=== PATIENT | female | born 1960 | race Hispanic/Latino ===

== ENCOUNTER → 2023-10-19 07:39 | Outpatient (REF) | payer OTHER, SELFPAY ==
[2023-10-19 09:45] LABS: Free T4 1.29 ng/dl (0.78-2.19)
[2023-10-19 09:58] LABS: TSH 8.04 uIU/ml (0.47-4.68)
[2023-10-19 10:09] LABS: Glycohemoglobin (HgbA1c) 6.5 % (4.0-5.6)
== END ==
LOC: CLINIC 07:39
PROVIDERS: ATTENDING PHYSICIAN Nurse Practitioner Adult Health
DX: R73.03 Prediabetes (principal); E06.9 Thyroiditis, unspecified
CPT/HCPCS: 36415; 82306; 83036; 84439; 84443

== ENCOUNTER 2023-10-19 09:44 | Emergency (ER) | payer SELFPAY ==
[2023-10-19 09:56] VITALS: BP 150/88
--- NOTE | 2023-10-19 11:45 | ED.GENMED ---
History of Present Illness
General
Chief Complaint: Fall
Source: patient
Exam Limitations: none
Time Seen by Provider: 10/19/23 11:07
Nursing documentation reviewed up to this point in time: agreed with
Travel History
Have you had any contact with someone who has COVID-19?: No
Do you have any symptoms of coronavirus? Fever > 100 degrees, chills, cough, shortness of breath, sore throat, loss of taste or smell, muscle aches, or headache?: No
History of Present Illness
History of Present Illness:
63-year-old female presenting to the emergency department after a fall on outstretched hand prior to arrival injuring her right elbow. She claims that she may have gently hit her head but denies any major impact no loss of consciousness no numbness
weakness nausea vomiting or additional concerns only right elbow pain at this time. No neck pain.
Review of Systems
Review of Systems
Allergies reviewed?: Yes
All Other Systems: ROS reviewed and negative except as documented in HPI and ROS
Phy Exam
Physical Exam
Physical Exam:
GENERAL: Alert , in no apparent distress
EYE: pupils equal and reactive
NECK: Supple, no significant adenopathy.
ENT: o/p clr, mmm.
CARDIAC: Regular rate and rhythm .
LUNGS: Clear breath sounds bilaterally, no acute respiratory distress, no wheezes/rales/rhonchi
ABDOMEN: Soft, without focal tenderness, no r/g, no cvat
NEUROLOGICAL: Alert and oriented, no focal neuro deficits
SKIN: Warm and dry, skin intact.
MUSCULOSKELETAL: Swelling and tenderness palpation to the right elbow mainly to the area lateral to the elbow itself and the proximal ulna. No discomfort to the wrist or hand no tenderness to the proximal shoulder no visible trauma to the head or
face ma, well perfused.
PSYCH: Normal and appropriate interaction.
Course
Orders/Labs/Results
Orders:
Orders
05/21/24 09:58
CR Elbow - Right Min 2 View Urgent
Reason For Exam: pain, swelling
Vital Signs
Initial and Last Documented VS:
Initial Vital Signs
Temp Pulse Resp BP Pulse Ox
98.1 F 63 18 150/88 98
10/19/23 09:56 10/19/23 09:56 10/19/23 09:56 10/19/23 09:56 10/19/23 09:56
Last Documented Vital Signs
Temp Pulse Resp BP Pulse Ox
98.1 F 63 18 150/88 98
10/19/23 09:56 10/19/23 09:56 10/19/23 09:56 10/19/23 09:56 10/19/23 09:56
Procedures
Splinting/Sling Placement
Right Elbow:
Procedure completed by: Myself
Pre-splint extermity exam: neurovascular intact
Type of splint: posterior long arm
Splint material: fiberglass
Splint checked by provider?: Yes
Type of sling: sling fitted
Normal distal neurovascular exam?: Yes
MDM/Problems Addressed
MDM/Problems Addressed:
63-year-old female presenting to the emergency department with injury to the right elbow after fall on outstretched hand prior to arrival. May have gently hit her head denies any major head impact did not lose consciousness no neck pain. Patient
not on blood thinners. Low risk for significant head injury. X-ray performed of the right elbow that showed a proximal ulnar fracture patient was placed in a splint and sling. Orthopedics was contacted and patient will follow close with
orthopedics as an outpatient. Return precautions given.
*Critical Care Note
Total Time (30-74mins, 75-104mins- exclusive of procedures): Not Applicable
ED Attending Note
-
Portions of this chart may have been created with voice recognition software.� Occasional wrong word or��sound alike� substitutions may have occurred due to the inherent limitations of voice recognition software.
Discharge Plan
Departure
Patient Disposition: Home (Routine Discharge)
Date of Disposition: 10/19/23
Time of Disposition: 12:08
Patient with high blood pressure during this ER visit?: No
Condition: Good
Covid-19: Not Applicable
Discharge Problem:
Elbow fracture, right
Instructions: Elbow Fracture, Adult ED
Prescriptions:
No Action
levothyroxine [Synthroid] 50 mcg Tablet
50 mcg PO MOWEFRSA@0800
levothyroxine [Synthroid] 50 mcg Tablet
75 mcg PO SUTUTH@0800
cholecalciferol (vitamin D3) [Vitamin D3] 25 mcg (1,000 unit) Tablet
25 mcg PO DAILY
Referrals:
Matthias Wilson MD [Active] - Follow up in 5-7 days
UNKNOWN - PT DOES,NOT KNOW [Family Provider] -
Activity Restrictions/Additional Instructions:
You came to the emergency department today with concerns of elbow discomfort you are found to have an elbow fracture. Please leave the splint and sling in place until follow-up with orthopedics within 1 week. Return to the emergency department any
worsening, new or concerning symptoms.
Interventions
Interventions:
*Risk Screen - Suicide Last Done: 10/19/23 11:46
*General Assessment Last Done: 10/19/23 11:46
*Neglect/Abuse Screening Last Done: 10/19/23 11:46
ED- Fall Risk Assessment Last Done: 10/19/23 11:46
*ED COVID-19 Vaccine History Last Done: 10/19/23 09:56
ED-Musculoskeletal Assessment Last Done: 10/19/23 11:46
ED- Neurological Assessment Last Done: 10/19/23 11:46
ED-Skin Assessment Last Done: 10/19/23 11:46
Discharge Date and Time
Print Language: PALAUAN
[2023-10-19 11:46] VITALS: BMI 28.3
== END 2023-10-19 12:24 | disposition home or self-care (01) ==
LOC: EMR 09:44
PROVIDERS: EMERGENCY PHYSICIAN Emergency Medicine
DX: S52.041A Displaced fracture of coronoid process of right ulna, initial encounter for closed fracture (principal); W19.XXXA Unspecified fall, initial encounter
CPT/HCPCS: 99283; 29105; 73070

== ENCOUNTER → 2024-01-07 08:10 | Outpatient (REF) | payer OTHER, SELFPAY ==
[2024-01-07 12:32] LABS: ALT (SGPT) 29 U/L (0-35); AST (SGOT) 30 U/L (14-36); Albumin 4.6 g/dl (3.5-5.0); Alkaline Phosphatase 99 U/L (38-126); Blood Urea Nitrogen 23 mg/dl (7-17); Calcium 9.6 mg/dl (8.4-10.2); Carbon Dioxide 23 mmol/L (22-30); Chloride 105 mmol/L (98-107); Glucose 106 mg/dl (70-99); Potassium 4.2 mmol/L (3.5-5.1); Sodium 135 mmol/L (135-145); Total Bilirubin 0.8 mg/dl (0.2-1.3); Total Protein 7.7 g/dl (6.3-8.2); eGFR > 60.00
[2024-01-07 12:45] LABS: Vitamin D, 25-OH*** 39.7 ng/mL (30-80)
[2024-01-07 12:58] LABS: TSH 4.24 uIU/ml (0.47-4.68)
== END ==
LOC: HWLAB 08:10
PROVIDERS: ATTENDING PHYSICIAN Nurse Practitioner Adult Health
DX: R73.03 Prediabetes (principal); E03.9 Hypothyroidism, unspecified; E55.9 Vitamin D deficiency, unspecified
CPT/HCPCS: 36415; 80053; 82306; 83036; 84439; 84443

== ENCOUNTER → 2024-04-11 09:07 | Outpatient (REF) | payer OTHER, SELFPAY ==
[2024-04-11 12:46] LABS: Free T4 1.41 ng/dl (0.78-2.19)
[2024-04-11 12:54] LABS: Calcium 9.3 mg/dl (8.4-10.2); Glucose 106 mg/dl (70-99); Potassium 4.4 mmol/L (3.5-5.1); Sodium 142 mmol/L (135-145)
[2024-04-11 13:01] LABS: TSH 1.15 uIU/ml (0.47-4.68)
[2024-04-11 13:05] LABS: Blood Urea Nitrogen 13 mg/dl (7-17); Carbon Dioxide 24 mmol/L (22-30); Chloride 105 mmol/L (98-107); eGFR > 60.00
== END ==
LOC: CLINIC 09:07
PROVIDERS: ATTENDING PHYSICIAN Nurse Practitioner Adult Health
DX: R73.03 Prediabetes (principal); E03.9 Hypothyroidism, unspecified
CPT/HCPCS: 36415; 80048; 83036; 84439; 84443

== ENCOUNTER → 2024-09-25 06:05 | Outpatient (REF) | payer OTHER, SELFPAY ==
[2024-09-25 09:22] LABS: Hematocrit 37.4 % (37.0-47.0); Hemoglobin 11.9 g/dL (12.0-16.0); Mean Corp Hgb Conc. 31.8 g/dL (33.0-37.0); Mean Corpuscular Hgb 29.5 pg (27.0-31.0); Mean Corpuscular Volume 92.6 fL (81.0-99.0); Platelet Count 246 10^3/uL (130-400); Red Blood Cell Count 4.04 10^6/uL (4.20-5.40); Red Cell Dist. Width 13.2 % (11.5-14.5); White Blood Cell Count 6.1 10^3/uL (4.8-10.8)
[2024-09-25 09:49] LABS: ALT (SGPT) 21 U/L (0-35); AST (SGOT) 23 U/L (14-36); Albumin 4.5 g/dl (3.5-5.0); Alkaline Phosphatase 99 U/L (38-126); Blood Urea Nitrogen 20 mg/dl (7-17); Calcium 9.1 mg/dl (8.4-10.2); Carbon Dioxide 24 mmol/L (22-30); Chloride 107 mmol/L (98-107); Glucose 114 mg/dl (70-99); HDL Cholesterol 49 mg/dl; LDL Cholesterol, Calculated 122 mg/dl; Potassium 4.6 mmol/L (3.5-5.1); Sodium 142 mmol/L (135-145); Total Bilirubin 0.8 mg/dl (0.2-1.3); Total Cholesterol 209 mg/dl (50-199); Total Protein 7.3 g/dl (6.3-8.2); Triglyceride 194 mg/dl (10-149); Very Low Density Lipoprotein 38 mg/dl (0-30); eGFR > 60.00
[2024-09-25 09:57] LABS: Vitamin D, 25-OH*** 46.7 ng/mL (30-80)
[2024-09-25 12:18] LABS: Glycohemoglobin (HgbA1c) 6.4 % (4.0-5.6)
== END ==
LOC: HWLAB 06:05
PROVIDERS: ATTENDING PHYSICIAN Nurse Practitioner Adult Health
DX: R73.03 Prediabetes (principal); E55.9 Vitamin D deficiency, unspecified
CPT/HCPCS: 36415; 80053; 80061; 82306; 83036; 85027

== ENCOUNTER → 2024-10-17 06:33 | Outpatient (REF) | payer OTHER, SELFPAY | LOC: CLINIC 06:33 | PROVIDERS: ATTENDING PHYSICIAN Nurse Practitioner Adult Health | DX: Z12.31 Encounter for screening mammogram for malignant neoplasm of breast (principal) | CPT/HCPCS: 77063; 77067 ==

== ENCOUNTER → 2025-01-02 08:22 | Outpatient (REF) | payer OTHER, SELFPAY ==
[2025-01-02 09:59] LABS: Hematocrit 37.3 % (37.0-47.0); Hemoglobin 11.9 g/dL (12.0-16.0); Mean Corp Hgb Conc. 31.9 g/dL (33.0-37.0); Mean Corpuscular Volume 94.2 fL (81.0-99.0); Platelet Count 221 10^3/uL (130-400); Red Cell Dist. Width 12.0 % (11.5-14.5)
[2025-01-02 11:20] LABS: ALT (SGPT) 18 U/L (0-35); AST (SGOT) 22 U/L (14-36); Albumin 4.5 g/dl (3.5-5.0); Alkaline Phosphatase 79 U/L (38-126); Blood Urea Nitrogen 13 mg/dl (7-17); Calcium 9.3 mg/dl (8.4-10.2); Carbon Dioxide 24 mmol/L (22-30); Chloride 109 mmol/L (98-107); Glucose 101 mg/dl (70-99); Iron 149 ug/dl (37-170); Potassium 4.6 mmol/L (3.5-5.1); Sodium 140 mmol/L (135-145); Total Protein 7.7 g/dl (6.3-8.2); eGFR > 60.00
[2025-01-02 11:30] LABS: Glycohemoglobin (HgbA1c) 5.9 % (4.0-5.6)
[2025-01-02 12:02] LABS: Total Iron Binding Capacity 294 ug/dl (265-497)
[2025-01-02 12:03] LABS: Ferritin 41.5 ng/ml (11.1-264.0)
[2025-01-02 12:17] LABS: Vitamin B12 513 pg/ml (239-931)
== END ==
LOC: CLINIC 08:22
PROVIDERS: ATTENDING PHYSICIAN Nurse Practitioner Adult Health
DX: D64.9 Anemia, unspecified (principal); Z12.11 Encounter for screening for malignant neoplasm of colon; R73.03 Prediabetes
CPT/HCPCS: 80053; 82607; 82728; 83036; 83540; 83550; 85027

== ENCOUNTER → 2025-01-03 08:13 | Outpatient (REF) | payer OTHER, SELFPAY ==
[2025-01-05 15:41] LABS: FIT-Fecal Occult Blood Interp Negative
== END ==
LOC: CLINIC 08:13
PROVIDERS: ATTENDING PHYSICIAN Nurse Practitioner Adult Health
DX: Z12.11 Encounter for screening for malignant neoplasm of colon (principal)
CPT/HCPCS: 83520